=== PATIENT | male | born 1970 | race Caucasian/White ===

== ENCOUNTER 2022-12-05 06:20 | Day surgery (SDC) | payer OTHER ==
[~2022-12-05] VITALS: Ht 170.2 cm; Wt 136.1 kg
[2022-12-05] MEDS ORDERED: MIDAZOLAM HCL 5 MG/5 ML VIAL ONE (07:21)
[2022-12-05] MEDS ORDERED: fentaNYL CITRATE/PF 100 MCG/2 ML AMP ONE (07:21)
[2022-12-05 12:50] VITALS: O2SAT 97
[2022-12-05 15:16] VITALS: BP_SYST 125; PULSE 51; RESP 17
== END 2022-12-05 10:23 | disposition home or self-care (01) ==
LOC: SDS 06:20 → SMU 06:21 → SDS 10:23
PROVIDERS: ATTEND Internal Medicine
DX: Z12.11 Encounter for screening for malignant neoplasm of colon (principal); D12.2 Benign neoplasm of ascending colon; I10 Essential (primary) hypertension; E11.9 Type 2 diabetes mellitus without complications; E78.5 Hyperlipidemia, unspecified; Z79.84 Long term (current) use of oral hypoglycemic drugs; Z79.899 Other long term (current) drug therapy
CPT/HCPCS: 45385; 99152; 88305; G0378; J2250; J3010